=== PATIENT | male | born 1990 | race Caucasian/White ===

== ENCOUNTER 2023-05-31 11:18 | Emergency (ER) | payer OTHER, SELFPAY ==
[2023-05-31 11:21] VITALS: BP 156/86; PULSE 97; RESP 20; TEMP 36.8; O2SAT 100; BMI 30.7
--- NOTE | 2023-05-31 11:21 | ED_ITS ---
HPI - General Adult General Chief complaint: Chest Pain Stated complaint: chest jaw arms numbness Time Seen by Provider: 05/31/23 11:36 Source: patient Mode of arrival: ambulatory Limitations: no limitations History of Present Illness HPI narrative: 32 yo male with hx of HTN on lisinopril, daily drinker but denies withdrawal symptoms - hx of anxiety as a child. He comes in with c/o feeling chest tightness at times radiating to the arm, feels anxious with jaw pain. He has no syncope, no vomiting. No fam hx of anything like this. He isn't sure if it is anxiety. He did drink last night. This has been on and off for a week. No travel or procedures complaint: chest tightness Onset (ago): week(s) (1) Location: chest Radiation: other (arm) Severity: mild Quality: other (tightness) Pain Consistency: intermittent Relieving factors: none Exacerbating factors: none Associated symptoms: shortness of breath Treatments prior to arrival: none Related Data Previous Rx's Medication Instructions Recorded hydroxyzine HCl 25 mg tablet 25 mg PO TID PRN anxiety #20 tabs 05/31/23 Allergies Allergy/AdvReac Type Severity Reaction Status Date / Time No Known Allergies Allergy Unverified 04/14/20 16:09 Review of Systems 2 Review of Systems: Constitutional : No Weight loss, No Fever, No Chills ENT/Mouth : No sore throat, No Rhinorrhea Eyes: No Eye Pain, No Swelling Cardiovascular : pos Chest Pain, pos SOB, no Dyspnea on Exertion, No Orthopnea, No Edema, No Palpitations Respiratory : No Cough, No Sputum Gastrointestinal : no Nausea, No Vomiting, No Diarrhea, No abdominal Pain, No Hematochezia, No Melena Genitourinary : No Dysuria, No Urinary Frequency Musculoskeletal : No joint pain, No Myalgias, No Joint Swelling Skin : No Skin Lesions, No rash Neuro : No Weakness, No Numbness, No Dizziness, No Headache Psych : pos Anxiety/Panic, No Depression Heme/Lymph: No Bruising, No Lymphadenopathy Endocrine : No Polyuria, No Polydipsia All other systems reviewed and are negative [facility] Past Medical History Attestation statement: The following information was validated with the patient. Medical History Anxiety HTN (hypertension) Social History Social History (Updated 05/31/23 @ 12:54 by Maya Rahman DO) Alcohol intake: current Patient Tobacco Use Status: Never used Tobacco Smoked in Last 30 Days: No Use of substances other than those prescribed or required for medical reasons: No Advance Directives: No Advance Directives Information Provided: Yes Physical Exam ED Vital Signs: Vital Signs - 24 hr 05/31/23 11:21 05/31/23 12:42 05/31/23 13:11 Temperature 98.2 F 97.8 F Pulse Rate 97 73 Respiratory Rate 20 16 Blood Pressure 156/86 H 119/72 Pulse Oximetry 100 98 Oxygen Delivery Method Room Air Room Air BMI result Body Mass Index 30.7 Appearance: Alert. Oriented X3. No acute distress. Eyes: Pupils equal, round and reactive to light. ENT: Pharynx normal. Neck: Normal inspection. Neck supple. CVS: Normal heart rate and rhythm. Pulses normal. Respiratory: No respiratory distress. Breath sounds normal. Abdomen: Soft and nontender. Skin: Skin warm and dry. Normal skin color. Normal skin turgor. Extremities: No lower extremity edema. No calf ttp Neuro: Oriented X 3. No motor deficit. No sensory deficit. Course Course Course Narrative: This is a rapid medical exam: Additional HPI, ROS, PE not included below will be deferred to primary provider. Patient is a 32-year-old male presenting to the emergency department with complaint of intermittent chest pain, shortness of breath, jaw tightness, lightheadedness, and arm tingling since yesterday. Reports history of similar episodes in the past. Was recently started on lisinopril around 3 months ago for HTN. Reports history of panic attacks as a child, is unsure if symptoms feel similar. Plan: EKG, labs Medications Administered Discontinued Medications Generic Name Dose Route Start Last Admin Trade Name Freq PRN Reason Stop Dose Admin Hydroxyzine HCl 25 mg 05/31/23 12:18 05/31/23 12:42 Hydroxyzine Hcl 25 Mg Tablet PO 05/31/23 12:19 25 mg ONCE ONE Administration Medical Decision Making Medical Decision Making [facility] Narrative: 32 yo male with PMH of HTN here with c/o anxiety, chest tightness, dyspnea - no known risk factors other than HTN for ACS - he is not toxic appearing, distal pulses intact doubt dissection, PERC negative. His BP is much lower now at this time will need basic labs, EKG, troponin x 1, atarax for anxiety and referral to cardiology for symptoms. Differential Diagnosis Differential Diagnoses: The differential diagnosis associated with the presentation includes anxiety, atypical chest pain, ETOH withdrawal Admission/Observation Consideration of admission/observation: Escalation of care including admission/observation considered trop flat nonischemic EKG, BP improved can be managed as outpatient Lab Data MDM Lab Attestation statement: I reviewed the patient's lab results. 05/31/23 11:31 05/31/23 11:31 Labs: Lab Results 05/31/23 Range/Units 11:31 WBC 5.7 (4.8-10.8) X10*3/uL RBC 3.98 L (4.60-5.80) X10*6/uL Hgb 13.2 L (14.0-18.0) g/dl Hct 37.3 L (42.0-52.0) % MCV 93.7 (80.0-98.0) fL MCH 33.2 H (27.0-33.0) pg MCHC 35.4 (31.0-36.0) g/dl RDW 12.6 (11.0-16.0) % Plt Count 249 (160-400) X10*3/uL MPV 9.2 L (9.4-12.4) fL Immature Gran % (Auto) 0.2 (0.0-0.4) % Neut % (Auto) 46.9 (45-73) % Lymph % (Auto) 43.8 H (20-40) % [place] % (Auto) 6.4 (2-11) % Eos % (Auto) 1.8 (0-4) % Baso % (Auto) 0.9 (0-2) % Lymph # (Auto) 2.5 (1.2-4.9) X10*3/uL [place] # (Auto) 0.4 (0.1-1.2) X10*3/uL Eos # (Auto) 0.1 (0.0-0.4) X10*3/uL Baso # (Auto) 0.1 (0.0-0.2) X10*3/uL Abs Immat Gran (auto) 0.01 (0.00-0.03) X10*3/uL Absolute Neuts (auto) 2.7 (2.0-8.3) x10*3/uL Absolute Nucleated RBC 0.000 (0.0-0.012) X10*3/uL Nucleated RBC % (auto) 0.0 (0.0-0.2) /100WBC Sodium 136 (135-145) mmol/L Potassium 3.5 (3.3-5.1) mmol/L Chloride 99 (96-108) mmol/L Carbon Dioxide 22 (22-29) mmol/L Anion Gap 19 (12-20) BUN 12 (9-16) mg/dL Creatinine 0.72 (0.5-1.4) mg/dL Estim Creat Clear Calc 168.5 Estimated GFR > 60 Random Glucose 130 H (60-115) mg/dL Calcium 9.6 (8.4-10.2) mg/dL Total Bilirubin 0.8 (0.0-1.0) mg/dL AST 187 H (5-37) U/L ALT 97 H (0-40) U/L Alkaline Phosphatase 96 (39-117) U/L Troponin I High Sens < 2.7 (<3.5-35.0) ng/L Total Protein 7.9 (6.5-8.0) g/dL Albumin 5.0 (3.5-5.0) g/dL Independent Interpretation I performed an independent interpretation of an: EKG Interpretation: Rate: 90 Rhythm: NSR [place]: normal Normal P waves. Normal JULIAN. Normal QRS complex. ST T wave : no NESTOR inverted t wave III qTC: normal prior studies: no acute ischemia The study has been interpreted contemporaneously by me. . Radiology Impression Discussion of test interpretation with radiology: I have reviewed the radiologist's reading. Prescription Management I considered prescription management with: Other Discharge Plan Discharge Clinical Impression: Atypical chest pain Patient Disposition: Home, Self-Care Instructions: Chest Pain (ED) Additional Instructions: continue your medications, stop drinking - your liver enzymes are up they should be checked by your doctor in one week. return for worsening symptoms, increased shortness of breath. at this time follow up with your doctor for outpatient ECHO and stress test. Prescriptions: New hydroxyzine HCl 25 mg tablet 25 mg PO TID PRN (Reason: anxiety) Qty: 20 0RF Interventions: ED Discharge Assessment Last Done: 05/31/23 13:11 Discharge Date/Time: 05/31/23 13:15
--- NOTE | 2023-05-31 11:23 | ECG_ITS ---
Test Reason : cp Blood Pressure : / mmHG Vent. Rate : 090 BPM Atrial Rate : 090 BPM P-R Int : 154 ms QRS Dur : 106 ms QT Int : 370 ms P-R-T Axes : 033 036 037 degrees QTc Int : 452 ms Normal sinus rhythm RSR' or QR pattern in V1 suggests right ventricular conduction delay Intra-ventricular conduction delay Nonspecific T wave abnormality Inferior leads Abnormal ECG No previous ECGs available Referred By: Marilia Larson Electronically Signed By:MARK GAGE MD
[2023-05-31 11:38] LABS: MANUAL DIFF FLAG NO
[2023-05-31 11:42] LABS: Basophils Absolute Auto 0.1 X10*3/uL (0.0-0.2); Basophils Percent Auto 0.9 % (0-2); Eosinophils Absolute Auto 0.1 X10*3/uL (0.0-0.4); Eosinophils Percent Auto 1.8 % (0-4); Hematocrit 37.3 % (42.0-52.0); Hemoglobin 13.2 g/dl (14.0-18.0); Imm Gran Abs Auto 0.01 X10*3/uL (0.00-0.03); Imm Gran Pct Auto 0.2 % (0.0-0.4); Lymphocytes Absolute Auto 2.5 X10*3/uL (1.2-4.9); Lymphocytes Percent Auto 43.8 % (20-40); Mean Corpuscular HGB Conc 35.4 g/dl (31.0-36.0); Mean Corpuscular Hemoglobin 33.2 pg (27.0-33.0); Mean Corpuscular Volume 93.7 fL (80.0-98.0); Mean Platelet Volume 9.2 fL (9.4-12.4); Monocytes Absolute Auto 0.4 X10*3/uL (0.1-1.2); Monocytes Percent Auto 6.4 % (2-11); Neutrophils Absolute Auto 2.7 x10*3/uL (2.0-8.3); Neutrophils Percent Auto 46.9 % (45-73); Platelet Count 249 X10*3/uL (160-400); Red Blood Count 3.98 X10*6/uL (4.60-5.80); Red Cell Distribution Width 12.6 % (11.0-16.0); White Blood Count 5.7 X10*3/uL (4.8-10.8)
[2023-05-31 11:54] LABS: Alanine Aminotransferase 97 U/L (0-40); Alkaline Phosphatase 96 U/L (39-117); Anion Gap 19 (12-20); Aspartate Amino Transferase 187 U/L (5-37); Bilirubin Total 0.8 mg/dL (0.0-1.0); Blood Urea Nitrogen 12 mg/dL (9-16); Calcium 9.6 mg/dL (8.4-10.2); Carbon Dioxide 22 mmol/L (22-29); Chloride 99 mmol/L (96-108); Creatinine Clr Calc Pharmacy 168.5; Estimated Glomerular Filt Rate > 60; Glucose Random 130 mg/dL (60-115); Potassium 3.5 mmol/L (3.3-5.1); Sodium 136 mmol/L (135-145); Total Protein 7.9 g/dL (6.5-8.0)
[2023-05-31 12:00] VITALS: PULSE 70
[2023-05-31 12:13] LABS: Troponin-I High Sensitivity < 2.7 ng/L (<3.5-35.0)
[2023-05-31 12:42] VITALS: BP 119/72; PULSE 73; RESP 16; O2SAT 98
[2023-05-31] MEDS: hydrOXYzine HCL 25 MG TABLET PO (12:42)
[2023-05-31 13:11] VITALS: TEMP 36.6
== END 2023-05-31 13:15 | disposition home or self-care (01) ==
PROVIDERS: Registered Nurse Emergency; Emergency Provider Emergency Medicine
DX: R07.89 Other chest pain (principal); R20.0 Anesthesia of skin; R06.02 Shortness of breath; Z79.899 Other long term (current) drug therapy
CPT/HCPCS: 36415; 80053; 84484; 85025; 93005; 99283; 99285

== ENCOUNTER 2024-07-05 10:48 | Emergency (ER) | payer OTHER, SELFPAY ==
--- NOTE | ~2024-07-05 | CT_ITS ---
EXAMINATION: CT ABDOMEN AND PELVIS WITH CONTRAST CLINICAL INFORMATION: Right flank/hip pain/swelling. hematoma? COMPARISON: None available. TECHNIQUE: Multidetector volumetric images were obtained from the superior aspect of the liver through the pubic symphysis following administration 85 mL of Omnipaque 350 intravenous contrast. Sagittal and coronal reformatted images were obtained on the technologist's workstation. Oral contrast: No This CT examination was performed using dose optimization techniques as appropriate, variously including the following: *Automated exposure control *Adjustment of mA and/or kV according to patient size (this includes techniques or standardized protocols for targeted exams where dose is matched to indication/reason for exam; i.e. extremities or head) *Use of iterative reconstruction technique DLP: 682 mGy-cm FINDINGS: LUNG BASES: The lung bases appear clear, with no evidence of inflammation or nodules. LIVER, GALLBLADDER, AND BILIARY TREE: Liver measures approximately 27 cm in sagittal dimension. Suspect fatty infiltration of the liver. The liver appears unremarkable in shape. No focal hepatic lesion or biliary ductal dilatation is appreciated. Unremarkable appearance of the gallbladder. PANCREAS: Unremarkable SPLEEN: Unremarkable ADRENAL GLANDS: Unremarkable KIDNEYS AND URETERS: The kidneys appear unremarkable in size, shape, and attenuation. No hydronephrosis, hydroureter, or calculi seen. BLADDER: Unremarkable GASTROINTESTINAL TRACT: The stomach, small and large bowel appear unremarkable. No diverticulosis. Normal-appearing distal ileum and vermiform appendix. ABDOMINAL WALL: No significant hernia is appreciated. No contusion or hematoma identified. LYMPH NODES: 2.0 cm portacaval node (image 32, series 3), and 1.9 cm periportal/celiac node (image 24). VASCULAR: Unremarkable PELVIC VISCERA: Unremarkable OSSEOUS STRUCTURES: Unremarkable CT/CT abdomen pelvis w IV con IMPRESSION: No acute finding. No right hip contusion and/or hematoma identified. Moderate hepatosplenomegaly. Suspect fatty infiltration of the liver. Enlarged portacaval and periportal/celiac lymph nodes, nonspecific. Electronically signed by: Makr Rogers MD 07/05/2024 03:01 PM MED
[2024-07-05 11:01] VITALS: BP 147/93; PULSE 89; RESP 16; TEMP 37.2; O2SAT 98; BMI 34.0
--- NOTE | 2024-07-05 11:26 | ED.GENADULT ---
HPI - General Adult General Chief complaint: Back Pain/Injury Stated complaint: work inj Time Seen by Provider: 07/05/24 11:08 Source: patient Mode of arrival: ambulatory Limitations: no limitations History of Present Illness ED Provider: Simba Diamond PA-C HPI narrative: 33-year-old male healthy presents to ED for right lower back/hip pain was swelling in the right posterior hip area which causes his to lean to the left. Patient states last week at work he was lifting heavy objects and had pain in his back right lower hip area ever since which has not improved. Patient went to his primary care provider had x-ray done of low back which was normal. Patient states swelling has increased in size and now he is leaning to the left. Patient denies any fever, chills, or blunt trauma to the area. Related Data Previous Rx's ?Medication ?Instructions ?Recorded hydroxyzine HCl 25 mg tablet 25 mg PO TID PRN anxiety #20 tabs 05/31/23 Allergies Allergy/AdvReac Type Severity Reaction Status Date / Time No Known Allergies Allergy Verified 07/05/24 11:03 Review of Systems Review of Systems: Right lower back hip pain. Yes all other systems are reviewed and are negative [facility] Past Medical History Medical History Anxiety HTN (hypertension) Social History Social History (Updated 05/31/23 @ 12:54 by Maya Rahman DO) Alcohol intake: current Patient Tobacco Use Status: Never used Tobacco Advance Directives: No Advance Directives Information Provided: Yes Physical Exam ED Vital Signs: Vital Signs - 24 hr 07/05/24 11:01 07/05/24 15:14 07/05/24 15:25 Temperature 99.0 F 98.1 F 98.1 F Pulse Rate 89 77 77 Respiratory Rate 16 20 20 Blood Pressure 147/93 H 131/69 131/69 Pulse Oximetry 98 98 98 Oxygen Delivery Method Room Air Room Air Room Air BMI result Body Mass Index 34.0 Const General: cooperative, healthy appearing, comfortable, no acute distress, well developed, alert, awake and Physically active Orientation/consciousness: patient oriented x3 HENMT Head: Yes normal to inspection, Yes No palpable skull fracture present, Yes normocephalic and Yes atraumatic Eyes General: appearance normal, both eyes and all related structures Neck Neck: Yes normal visual inspection, Yes full ROM, Yes no lymphadenopathy, Yes no meningeal signs, Yes trachea midline, Yes supple, No anterior neck swelling and No tender Chest Chest palpation & inspection: normal inspection of the chest and normal palpation of entire chest wall Resp Effort & Inspection: normal respiratory effort and able to speak in complete sentences Auscultation: clear to auscultation bilaterally Cardio Jugular venous distension: no JVD Heart sounds: S1 normal heart sound present and S2 normal heart sound present GI Inspection: Yes normal to inspection Palpation (GI): Soft to palpation, not firm, nontender, no guarding and not rigid General: Yes no CVA tenderness Back/Spine/Pelvis Back: no CVA tenderness and No back tenderness Back/spine/pelvis image: 1. Positive for right lower hip swelling/pain/mass/tenderness without any ecchymosis, erythema, fluctuance, or hardness. Patient is leaning to the left. Negative for any anterior abdominal tenderness. Skin General skin exam: no rashes or lesions noted, elasticity normal and turgor normal Neuro General: patient oriented x3, gait normal, tone normal, moves all extremities, Normal light touch and pain sensation, no meningeal signs, no focal motor deficits, CN's II-XI intact bilaterally and normal sensation to monofilament Extrem Other: Right lower extremity normal negative for any swelling, bluish black discoloration, ecchymosis, tenderness, calf pain, fluctuance, palpable cord, hotness, or coldness. Negative for skin tightness. Motor/neuro/vascular exam intact General: Yes normal to inspection, Yes full ROM and Yes capillary refill normal Psych Appearance: grossly normal, well kempt and not disheveled Medications Administered Discontinued Medications Generic Name Dose Route Start Last Admin Trade Name Darryl PRN Reason Stop Dose Admin Iohexol 85 ml 07/05/24 12:21 07/05/24 12:21 Iohexol 350 Mg/Ml 75 Ml Infus..Btl IV 07/05/24 12:22 85 ml ONCE ONE Administration Ketorolac Tromethamine 30 mg 07/05/24 12:46 07/05/24 13:48 Ketorolac Tromethamine 30 Mg/Ml Vial IVPUSH 07/05/24 12:47 Not Given ONCE ONE Medical Decision Making Medical Decision Making MDM Narrative: Dirty TM male with right lower posterior hip pain with swelling after lifting heavy objects since last week. Patient has difficulty walking since than. Patient denies any urinary/bowel incontinence. Patient denies any IV drug use. Negative for any spine tenderness. Right posterior hip muscle area significantly swollen and tender. Negative for bluish black discoloration. Unlikely hematoma was sent for CT scan to rule out large hematoma. Maybe more muscle tear patient informed he will need an outpatient MRI. Not suspecting DVT or large or small arterial emboli. Right lower extremity motor/neuro/vascular exam intact, 3:31pm: Labs are normal. CT scan negative for any hematoma or hernia. Patient informed he needs to follow up with primary care providers gamma MRI to rule out any muscle tear. Patient informed to continue taking meds he was prescribed by his primary care provider. Not suspecting DVT, cauda equinus syndrome, epidural abscess, osteomyelitis, pyelonephritis, kidney stones, UTI, abdominal aortic aneurysm, cellulitis, osteomyelitis, or any other life-threatening etiology. Patient explained worrisome signs and informed return to the ED immediately. Patient given copy of CT scan Differential Diagnosis Differential Diagnoses: The differential diagnosis associated with the presentation includes (Hematoma, muscle tear, fracture dislocation,) Admission/Observation Consideration of admission/observation: Escalation of care including admission/observation considered Lab Data MDM Lab Attestation statement: I reviewed the patient's lab results. 07/05/24 11:38 07/05/24 11:38 Labs: Lab Results 07/05/24 Range/Units 11:38 WBC 9.5 (4.8-10.8) X10*3/uL RBC 4.87 D (4.60-5.80) X10*6/uL Hgb 15.4 (14.0-18.0) g/dl Hct 42.6 (42.0-52.0) % MCV 87.5 (80.0-98.0) fL MCH 31.6 (27.0-33.0) pg MCHC 36.2 H (31.0-36.0) g/dl RDW 11.9 (11.0-16.0) % Plt Count 288 (160-400) X10*3/uL MPV 8.9 L (9.4-12.4) fL Immature Gran % (Auto) 0.7 H (0.0-0.4) % Neut % (Auto) 60.5 (45-73) % Lymph % (Auto) 28.1 (20-40) % [place] % (Auto) 6.3 (2-11) % Eos % (Auto) 3.7 (0-4) % Baso % (Auto) 0.7 (0-2) % Lymph # (Auto) 2.7 (1.2-4.9) X10*3/uL [place] # (Auto) 0.6 (0.1-1.2) X10*3/uL Eos # (Auto) 0.4 (0.0-0.4) X10*3/uL Baso # (Auto) 0.1 (0.0-0.2) X10*3/uL Abs Immat Gran (auto) 0.07 H (0.00-0.03) X10*3/uL Absolute Neuts (auto) 5.7 (2.0-8.3) x10*3/uL Absolute Nucleated RBC 0.000 (0.0-0.012) X10*3/uL Nucleated RBC % (auto) 0.0 (0.0-0.2) /100WBC Sodium 136 (135-145) mmol/L Potassium 4.3 (3.3-5.1) mmol/L Chloride 97 (96-108) mmol/L Carbon Dioxide 26 (22-29) mmol/L Anion Gap 17 (12-20) BUN 15 (9-16) mg/dL Creatinine 0.77 (0.5-1.4) mg/dL Estim Creat Clear Calc 163.9 Estimated GFR > 60 Random Glucose 128 H (60-115) mg/dL Calcium 9.9 (8.4-10.2) mg/dL Total Bilirubin 0.8 (0.0-1.0) mg/dL AST 143 H (5-37) U/L ALT 158 H (0-40) U/L Alkaline Phosphatase 65 (39-117) U/L Total Protein 8.0 (6.5-8.0) g/dL Albumin 4.9 (3.5-5.0) g/dL Independent Interpretation I performed an independent interpretation of an: CT Scan Radiology Impression Discussion of test interpretation with radiology: I have reviewed the radiologist's reading. Independent Historian Clinical information obtained from an independent historian. History obtained from or confirmed by: Other ([employer]) External Record Review External record reviewed: Other (prior visits) Prescription Management I considered prescription management with: Pain Medication Discharge Plan Discharge Clinical Impression: Back pain, Strain of lumbar region, Hip strain Patient Disposition: Home, Self-Care Instructions: Muscle Strain (ED), Back Pain (ED), R.I.C.E. Treatment (ED), Warm Compress or Soak (ED) Additional Instructions: Labs came back normal. CT scan came back negative for any hematoma or hernia. Recommend follow up with the primary care provider. I recommended he ordered MRI to evaluate for possible muscle tear and hip low back area. Recommend nonstrenuous activities with your back and hip for 1 week. You will need follow-up with work connection. Return to the ED for any severe back pain, urinary/bowel incontinence, nausea, vomiting, flank pain, fever, chills, bluish discoloration, dysuria, hematuria, or any other concerning symptoms. Continue using the medications your primary care provider prescribed you. CT/CT abdomen pelvis w IV con IMPRESSION: No acute finding. No right hip contusion and/or hematoma identified. Moderate hepatosplenomegaly. Suspect fatty infiltration of the liver. Enlarged portacaval and periportal/celiac lymph nodes, nonspecific. Electronically signed by: Mark Rogers MD 07/05/2024 03:01 PM MED [facility] Prescriptions: No Action hydroxyzine HCl 25 mg tablet 25 mg PO TID PRN (Reason: anxiety) Qty: 20 0RF Stand Alone Forms: Work/School Release Interventions: ED Discharge Assessment Last Done: 07/05/24 15:25 Discharge Date/Time: 07/05/24 15:25 Print Language: Macedonian
[2024-07-05 11:44] LABS: MANUAL DIFF FLAG NO
[2024-07-05 11:45] LABS: Basophils Absolute Auto 0.1 X10*3/uL (0.0-0.2); Basophils Percent Auto 0.7 % (0-2); Eosinophils Absolute Auto 0.4 X10*3/uL (0.0-0.4); Eosinophils Percent Auto 3.7 % (0-4); Hematocrit 42.6 % (42.0-52.0); Hemoglobin 15.4 g/dl (14.0-18.0); Imm Gran Abs Auto 0.07 X10*3/uL (0.00-0.03); Imm Gran Pct Auto 0.7 % (0.0-0.4); Lymphocytes Absolute Auto 2.7 X10*3/uL (1.2-4.9); Lymphocytes Percent Auto 28.1 % (20-40); Mean Corpuscular HGB Conc 36.2 g/dl (31.0-36.0); Mean Corpuscular Hemoglobin 31.6 pg (27.0-33.0); Mean Corpuscular Volume 87.5 fL (80.0-98.0); Mean Platelet Volume 8.9 fL (9.4-12.4); Monocytes Absolute Auto 0.6 X10*3/uL (0.1-1.2); Monocytes Percent Auto 6.3 % (2-11); Neutrophils Absolute Auto 5.7 x10*3/uL (2.0-8.3); Neutrophils Percent Auto 60.5 % (45-73); Platelet Count 288 X10*3/uL (160-400); Red Blood Count 4.87 X10*6/uL (4.60-5.80); Red Cell Distribution Width 11.9 % (11.0-16.0); White Blood Count 9.5 X10*3/uL (4.8-10.8)
[2024-07-05 12:01] LABS: Alanine Aminotransferase 158 U/L (0-40); Albumin Level 4.9 g/dL (3.5-5.0); Alkaline Phosphatase 65 U/L (39-117); Anion Gap 17 (12-20); Aspartate Amino Transferase 143 U/L (5-37); Bilirubin Total 0.8 mg/dL (0.0-1.0); Blood Urea Nitrogen 15 mg/dL (9-16); Calcium 9.9 mg/dL (8.4-10.2); Carbon Dioxide 26 mmol/L (22-29); Chloride 97 mmol/L (96-108); Creatinine Clr Calc Pharmacy 163.9; Estimated Glomerular Filt Rate > 60; Glucose Random 128 mg/dL (60-115); Potassium 4.3 mmol/L (3.3-5.1); Sodium 136 mmol/L (135-145)
[2024-07-05] MEDS: iohexoL 350 MG/ML 75 ML INFUS..BTL 85 ML IV (12:21)
[2024-07-05 15:14] VITALS: BP 131/69; PULSE 77; RESP 20; TEMP 36.7; O2SAT 98
[2024-07-05 15:25] VITALS: BP 131/69; PULSE 77; RESP 20; TEMP 36.7; O2SAT 98
== END 2024-07-05 15:25 | disposition home or self-care (01) ==
PROVIDERS: Physician Assistant; Emergency Provider Emergency Medicine Emergency Medical Services; PCP Internal Medicine
DX: S79.911A Unspecified injury of right hip, initial encounter (principal); S39.012A Strain of muscle, fascia and tendon of lower back, initial encounter; R10.2 Pelvic and perineal pain; M25.551 Pain in right hip; X50.0XXA Overexertion from strenuous movement or load, initial encounter; Y93.89 Activity, other specified; Y92.89 Other specified places as the place of occurrence of the external cause; Y99.0 Civilian activity done for income or pay; Z79.899 Other long term (current) drug therapy
CPT/HCPCS: 36415; 74177; 80053; 85025; 96374; 99284; Q9967

== ENCOUNTER 2024-07-21 21:50 | Emergency (ER) | payer OTHER, SELFPAY ==
[2024-07-21 21:52] VITALS: BP 143/90; PULSE 103; RESP 20; TEMP 36.3; O2SAT 96; BMI 33.9
--- NOTE | 2024-07-21 23:22 | ED.GENADULT ---
HPI - General Adult General Chief complaint: Wound/Laceration Stated complaint: Thumb lac Time Seen by Provider: 07/21/24 22:37 Source: patient, RN notes reviewed and old records reviewed Mode of arrival: ambulatory Limitations: no limitations History of Present Illness ED Provider: Zen FERRER narrative: 33-year-old male presents for evaluation of a left thumb laceration. 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 He has a flap-like laceration to the tip of the left thumb. He believes his tetanus is up-to-date Related Data Previous Rx's ?Medication ?Instructions ?Recorded hydroxyzine HCl 25 mg tablet 25 mg PO TID PRN anxiety #20 tabs 05/31/23 Allergies Allergy/AdvReac Type Severity Reaction Status Date / Time No Known Allergies Allergy Verified 07/21/24 21:55 Review of Systems Integumentary/Breasts: Skin/Breast: Reports wounds PMFSH Past Medical History Medical History Anxiety HTN (hypertension) Social History Social History (Updated 05/31/23 @ 12:54 by Maya Rahman DO) Alcohol intake: current Patient Tobacco Use Status: Never used Tobacco Do you have a plan to hurt others: No Plan Physical Exam ED Vital Signs: Vital Signs - 24 hr 07/21/24 21:52 Temperature 97.4 F Pulse Rate 103 H Respiratory Rate 20 Blood Pressure 143/90 H Pulse Oximetry 96 Oxygen Delivery Method Room Air BMI result Body Mass Index 33.9 Const General: healthy appearing, comfortable, no acute distress, alert and awake Nutritional Appearance: well nourished Orientation/consciousness: patient oriented x3 HENMT Head: Yes normocephalic and Yes atraumatic Eyes Eyelids: Yes eyelids normal Conjunctivae: conjunctivae normal Sclerae: sclerae normal Corneas: corneas normal Pupils: Equal, round and reactive pupils present EOM: EOMs intact bilaterally Neck Neck: Yes full ROM Resp Effort & Inspection: normal respiratory effort, able to speak in complete sentences and not labored Skin Other: 2 cm flap-like laceration to the tip of the left thumb General skin exam: elasticity normal Neuro General: patient oriented x3 Cranial nerves: Yes Equal, round and reactive pupils present and Yes Bilaterally intact EOM present Cognition (Neuro): normal cognition Extrem Other: Moving all extremities well without any obvious deformities Procedures Laceration Laceration 1: Site: hand (Left thumb) Side (If applicable): left Size (cm): 2 Description: flap Depth: simple, single layer Local Anesthetic: lidocaine 1% Amount of anesthesia used (mL): 3 Pre-repair: wound explored and irrigated extensively Skin layer closed with: nylon Size (cm): 5-0 Number of sutures: 4 Technique: simple, interrupted Medical Decision Making Medical Decision Making MDM Narrative: 33-year-old male presents for evaluation of a laceration to his left thumb. The wound was cleaned, it appears to be a fairly superficial wound but given the flap leg nature was continuing to bleed. See procedure note for wound closure. The patient's distal sensation and capillary refill is intact. I have a very low suspicion for fracture and therefore x-ray was not performed Differential Diagnosis Differential Diagnoses: The differential diagnosis associated with the presentation includes Laceration Skin tear Puncture wound Abrasion Discharge Plan Discharge Clinical Impression: Laceration Patient Disposition: Home, Self-Care Instructions: Laceration (ED) Additional Instructions: You had 4 sutures placed to your left thumb. These can be removed in 10-14 days. Keep the area clean and dry Follow-up with your primary doctor, return for new or worsening symptoms Prescriptions: No Action hydroxyzine HCl 25 mg tablet 25 mg PO TID PRN (Reason: anxiety) Qty: 20 0RF Print Language: Spanish
[2024-07-21] MEDS: Lidocaine HCl 1 % MPF 5 ML VIAL 10 ML INFILTRATI (23:41)
[2024-07-21 23:42] VITALS: BP 143/90; PULSE 103; RESP 20; TEMP 36.3; O2SAT 96
== END 2024-07-21 23:50 | disposition home or self-care (01) ==
PROVIDERS: Emergency Provider Internal Medicine; PCP Internal Medicine
DX: S61.012A Laceration without foreign body of left thumb without damage to nail, initial encounter (principal); M79.642 Pain in left hand; W26.0XXA Contact with knife, initial encounter; Y93.89 Activity, other specified; Y92.89 Other specified places as the place of occurrence of the external cause; Y99.8 Other external cause status
CPT/HCPCS: 12001; 99282; 99284; J2003